=== PATIENT | male | born 2005 | race Caucasian/White ===

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

== ENCOUNTER 2025-05-15 19:50 | Emergency (ER) | payer BC, SELFPAY ==
[2025-05-15] VITALS (11 sets, daily range): BP systolic 125–141; BP diastolic 69–84; PULSE 56–64; RESP 12–22; TEMP 36.6; O2SAT 98–99; BMI 29.5
--- NOTE | 2025-05-15 19:56 | ED.VIS.CHEST ---
HPI History of Present Illness Chief Complaint: Chest Pain Informant: patient Onset/Context/Timing Onset: Weeks (2) Activity at onset: gradual Timing: Intermittent Quality: Positive for Aching and Stabbing Location: Substernal, Right Parasternal and Left Parasternal Worsened By: Nothing Relieved By: Nothing Associated Symptoms: Positive for Cough and Palpitations; Negative for Nausea, Vomiting, Diaphoresis, Dyspnea, Fever, Lightheadedness or Acid Reflux Narrative Narrative: Patient presents with chest pain, jaw pain, neck pain, and dental pain that has been getting worse over the past 2 weeks. Patient states it comes and goes. Patient states it comes on gradually. Patient describes the pain as aching and stabbing. Patient states that the pain is over the substernal and bilateral parasternal areas. Patient states nothing makes it better nothing makes it worse. Patient admits to a cough. Patient also admits to some palpitations. Patient denies any shortness of breath. Patient denies any nausea or vomiting. Patient denies any diaphoresis or fevers. Patient states she had a recent car trip to [place] and back. CVD Risk Factors: Negative for Hypertension, Diabetes, Hypercholesterolemia, Family History 1' </=55 or Smoking PE Risk Factors: Positive for Recent Travel/Surgery; Negative for Recent Immobilization, Prior DVT or PE, Cancer or OCP + Smoking + >/=35 PFSH PFSH Medical History Seasonal allergies Home Medications ?Medication ?Instructions ?Recorded ?Last Taken ?Type cetirizine 10 mg tablet (Zyrtec) 10 mg PO DAILY 02/15/22 Unknown History Allergy/AdvReac Type Severity Reaction Status Date / Time cefdinir (From Omnicef) Allergy PT UNSURE Verified 05/15/25 19:51 OF REACTION Penicillins Allergy PT UNSURE Verified 05/15/25 19:51 OF REACTION Surgical History no surgical history no surgical history Social History Smoking Status: Never smoker ROS ROS ED Constitutional Constitutional ED: Denies chills or fever(s) Eyes Eyes: Denies blurry vision or change in vision ENT ENT ED: Reports rhinorrhea; Denies sore throat Cardiovascular Cardiovascular: Denies chest pain or palpitations Respiratory/Chest Respiratory/Chest: Denies cough or dyspnea Gastrointestinal Gastrointestinal: Denies nausea or vomiting Genitourinary Genitourinary ED: Denies dysuria or hematuria Musculoskeletal Musculoskeletal: Reports neck pain; Denies back pain Integumentary Denies abscess or rash Neurologic Neurologic: Reports headache(s); Denies weakness Allergic/Immunologic Allergic/Immunologic ED: Denies mouth swelling or urticaria EXAM Physical Exam Const Vital Signs: 05/15/25 19:50 05/15/25 20:04 05/15/25 20:17 Temperature 98 F Temperature Source Oral Pulse Rate 62 Respiratory Rate 18 Respiratory Effort Normal Blood Pressure 141/75 H Blood Pressure Mean 97 Pulse Ox 99 98 Oxygen Delivery Method Room Air Room Air 05/15/25 20:35 05/15/25 20:45 05/15/25 20:45 Temperature Temperature Source Pulse Rate 58 L 58 L Respiratory Rate 21 H 22 H Respiratory Effort Blood Pressure 137/75 H Blood Pressure Mean 92 Pulse Ox Oxygen Delivery Method 05/15/25 21:00 05/15/25 21:15 05/15/25 21:18 Temperature Temperature Source Pulse Rate 63 56 L Respiratory Rate 19 H 12 Respiratory Effort Blood Pressure 127/72 H 132/84 H 132/84 H Blood Pressure Mean 88 95 100 Pulse Ox Oxygen Delivery Method 05/15/25 21:30 05/15/25 21:45 05/15/25 22:00 Temperature Temperature Source Pulse Rate 62 60 64 Respiratory Rate 22 H 17 21 H Respiratory Effort Blood Pressure 125/76 H 128/69 H 132/80 H Blood Pressure Mean 90 86 95 Pulse Ox Oxygen Delivery Method Positive well nourished and well developed General Appearance ED: well developed and NAD HEENT Reports moist mucous membranes normocephalic and atraumatic Neck supple and no JVD Resp normal respiratory effort and clear to auscultation bilaterally Cardio regular rate and regular rhythm GI soft to palpation, non-tender and non-distended Extremity normal to inspection General Extremety ED: Negative for edema or pulses abnormal General Extremity: Negative for edema or pulses abnormal Neuro oriented x3, CN's II-XII intact bilaterally and no sensory deficits noted Sensorium / Orientation: awake and alert Motor Exam: strength 5/5 throughout Psych mental status grossly normal MDM MDM MDM Narrative Medical decision making narrative: Differential diagnosis includes cardiac dysrhythmia, cardiac ischemia, pneumonia, bronchitis, pulmonary embolism, electrolyte abnormality, gastroesophageal reflux disease, and anxiety. EKG will be obtained to assess for cardiac dysrhythmia and cardiac ischemia. Basic metabolic profile will be obtained to assess for electrolyte abnormality and renal function. CBC will be obtained to assess for leukocytosis and anemia. High-sensitivity troponin will be obtained to assess for cardiac ischemia. D-dimer will be obtained to assess for pulmonary embolism. History & Record Review Additional record(s) reviewed:: No prior records Lab Data Attestation: I reviewed the patient's lab results. Lab results narrative: CBC was reviewed and was within normal limits. Basic metabolic profile was reviewed and was within normal limits. High-sensitivity troponin was reviewed and was normal at 7. D-dimer was reviewed and was less than 0.27. Labs: Laboratory Results - last 24 hr 05/15/25 20:15 WBC 6.5 RBC 5.48 Hgb 15.7 Hct 44.3 MCV 80.8 MCH 28.6 MCHC 35.4 RDW Std Deviation 36.3 RDW Coeff of Loco 12.4 Plt Count 216 MPV 11.4 Immature Gran % (Auto) 0.500 Neut % (Auto) 54.2 Lymph % (Auto) 32.4 [place] % (Auto) 6.6 Eos % (Auto) 5.7 H Baso % (Auto) 0.6 Absolute Neuts (auto) 3.6 Absolute Lymphs (auto) 2.12 Nucleated RBC % 0 D-Dimer Quant (PE/DVT) < 0.27 L Sodium 140 Potassium 3.8 Chloride 103 Carbon Dioxide 25.0 Anion Gap 12 BUN 13 Creatinine 0.94 Estim Creat Clear Calc 154.44 Est GFR (MDRD) Non-Af 118 BUN/Creatinine Ratio 14.1 Glucose 86 Calcium 9.8 Troponin T High Sens 7 Radiography Chest X-Ray - ED: 2 View, Read by ED Physician, Read by Radiologist and No Acute Disease Diagnostic Testing: Clinical Impression(s) from Imaging Studies Chest X-Ray 05/15/25 20:04 IMPRESSION: As above. Reading Location: [id number] and lateral chest x-ray was obtained. There are 2 views. On my independent interpretation, lung ontiveros are clear. There is normal cardiac silhouette. Bony thorax is normal. There is no acute process noted. Radiologist also interpreted the x-ray and agrees. EKG Initial EKG: Attestation: I personally reviewed and interpreted this EKG as follows: Interpretation: No Acute Injury Pattern and Sinus Bradycardia (59) Comments: EKG was obtained. On my independent interpretation, it showed a sinus bradycardia with a rate of 59. TN interval, QRS interval, and QTc intervals were all normal. [place] was normal. There are no acute ST or T wave changes. Prior EKG tracings: not available for review Prior: No Prior Treatment and Re-Evaluation :: Patient was given aspirin. Patient was advised of his findings. Patient was instructed to follow-up with his primary care physician in 7 to 10 days. Patient was instructed to return if worse in any way. Patient understood and was agreeable with the plan. All questions were answered. Discharge Plan Triage Chief Complaint: Chest Pain ED Provider: Niels Tesfaye Dx/Rx/DC Orders Clinical Impression: Chest pain, Elevated blood pressure reading without diagnosis of hypertension Instructions: ED Chest Pain, Uncertain Cause Prescriptions: No Action cetirizine [Zyrtec] 10 mg Tablet 10 mg PO DAILY Primary Care Provider: Martina Lucas,Out of Referrals: Martina Lucas,Out of [Primary Care Provider, Medical] - 5-7 Days Print Language: Yoruba Disposition Disposition: Home, Self Care
--- NOTE | 2025-05-15 20:04 | RAD_ITS ---
PROCEDURE: CHEST PA AND LATERAL 05/15/2025 REASON FOR EXAM: CHEST PAIN TECHNIQUE: Procedure Code: RADCXR Modality: DX Procedure: CHEST PA AND LATERAL FINDINGS: The lungs are clear. The cardiomediastinal silhouette appears unremarkable. No acute osseous abnormality. RAD/Chest PA and Lateral IMPRESSION: As above. Reading Location: [id number]
--- NOTE | 2025-05-15 20:04 | EKG12_ITS ---
Test Reason : CP Blood Pressure : */* mmHG Vent. Rate : 59 BPM Atrial Rate : 59 BPM P-R Int : 144 ms QRS Dur : 104 ms QT Int : 410 ms P-R-T Axes : 46 71 38 degrees QTcB Int : 405 ms Sinus bradycardia Otherwise normal ECG Confirmed by Wesley Guzman ([id number]), associate editor URI KIRBY ([id number]) on 05/16/2025 8:34:01 AM Referred By: GRANT Confirmed By: Wesley Guzman
--- OUTSIDE RECORDS SUMMARY | 2025-05-15 20:21 | XMS RPT_ITS | CCD ---
Author Organization [facility] [employer] [facility] Care Team Providers Care Physicist [employer] Name Role Phone Care Physician, No Primary Primary Care Unava ilable Provider, Ed Physician Attending [facility] Care Physician, No Primary Primary Care Unava ilable Niels Tesfaye Attending Unavailable Care Physician, No Primary Primary Care Unava ilable Provider, Ed [facility] Attending Unavailable Care Physician, No Primary Primary Care Unava ilable Allergies Allergy Classification Reported Allergen(s) Allergy Type Date of Onset Reaction(s) Facility (3 sources) cefdinir Drug Allergy 2 PT UNSURE OF REACTION [facility] Work Phone: (3 sources) Penicillins Allergy to substance 2 PT UNSURE OF REACTION [facility] Work Phone: (1 source) cefdinir Drug Allergy 2 [facility] Repository (1 source) Penicillins Drug allergy (disorder) 2 [facility] Repository Medications Current Medications Medication Drug Class(es) Dates Sig (Normalized) Sig (Original) cetirizine hydrochloride 10 mg oral tablet (3 sources) Histamine-1 Receptor Antagonist Start: 02-15-2022 take 1 tablet by mouth once daily Cetirizine (Zyrtec) 10 mg Tablet Active 10 MG PO DAILY February 15, 2022 12:00am Problems Problem Classification Problem Date Documented Da te Episodic/Chronic E Codes: Natural/environment (3 sources) Mammal bite wound; Translations: [Bitten by other mammals, initial encounter] Episodic Immunizations and screening for infectious disease (5 sources) Exposure to Rabies virus; Translations: [Contact with and (suspected) exposure to rabies] Onset: 02-21-2022 Episodic Results Test Name Value Interpretation Reference Range Facil ity Emergency Department Summary on 02-15-2022 Emergency Department Summary [facility] Medical Records Department [address] [place] [address] Emergency Department Summary 02/15/22 MR#: [id number] Acct: [id number] Name: ROSALIA JEAN BAPTISTE Rep #: [id number] : 2005 16 From: Erin Eubanks MD PCP: Care Physician,No Primary Status:DEP ER Location: ED HPI History of Present Illness Chief Complaint: Bite Detail of Chief Complaint: Possible bat bite Informant: patient Narrative Narrative: Patient presents from the [facility] secondary to possible bat bite. He noted 2 small red lesions on his lower leg today and is concerned he may been bitten by a bat. [facility] Medical History Seasonal allergies Home Medications cetirizine 10 mg tablet (Zyrtec) 10 mg PO DAILY 02/15/22 [History Last Taken Unknown] Allergy/AdvReac Type Severity Reaction Status Date / Time cefdinir [From Omnicef] Allergy PT UNSURE Verified 02/15/22 15:30 OF REACTION Penicillins Allergy PT UNSURE Verified 02/15/22 15:30 OF REACTION Social History Smoking Status: Never smoker ROS ROS ED Constitutional Constitutional ED: Denies chills or fever(s) Eyes Eyes: Denies change in vision or discharge from eye(s) ENT ENT ED: Denies discharge from eye(s), rhinorrhea or sore throat Cardiovascular Cardiovascular: Denies chest pain or palpitations Respiratory/Chest Respiratory/Chest: Denies cough or dyspnea Gastrointestinal Gastrointestinal: Denies abdominal pain, diarrhea, nausea or vomiting Genitourinary Genitourinary ED: Denies difficulty urinating or dysuria Musculoskeletal Musculoskeletal: Denies back pain or extremity pain Integumentary Reports other Details: 2 small erythematous lesions on the left lower leg. Neurologic Neurologic: Denies headache(s) or weakness Psychiatric Psychiatric: Denies anxiety or depression Endocrine Endocrinology: Denies polydipsia or polyuria Allergic/Immunologic Allergic/Immunologic ED: Denies lip swelling or urticaria EXAM Physical Exam Const Vital Signs: 02/15/22 15:28 02/15/22 15:40 02/15/22 17:15 Temperature 98.7 F Temperature Source Temporal Pulse Rate 80 69 Respiratory Rate 16 16 Respiratory Effort Normal Non-Labored Respiratory Pattern Normal Blood Pressure 154/76 H 140/69 H Blood Pressure Mean 102 Pulse Ox 98 98 Oxygen Delivery Method Room Air Positive well nourished and well developed General Appearance ED: well developed HEENT Reports normocephalic and head/scalp atraumatic Eyes PERRL and EOMs intact bilaterally Neck supple Chest Wall inspection of chest normal and palpation of chest normal Resp normal respiratory effort and clear to auscultation bilaterally Cardio regular rate and regular rhythm GI normal to inspection, nondistended, normoactive bowel sounds Palpation: soft Extremity Extremity Narrative: 2 small erythematous superficial lesions to the left hathaway. No surrounding tenderness. Neuro oriented x3 and no sensory deficits noted Sensorium / Orientation: alert Motor Exam: strength 5/5 throughout Psych mental status grossly normal MDM MDM MDM Narrative Medical decision making narrative: Rabies series will be started and patient will return on days 3, 7, 14 for repeat dose. Discharge Plan Triage Chief Complaint: Bite ED Provider: Erin Eubanks Dx/Rx/DC Orders Clinical Impression: Bat bite wound, Rabies exposure Instructions: Understanding Rabies Prescriptions: No Action cetirizine [Zyrtec] 10 mg Tablet 10 mg PO DAILY Primary Care Provider: Care Physician,No Primary Referrals: [facility] Doctor,Out of [Non-Staff] - Disposition Disposition: Home, Self Care Discharge Date/Time: 02/15/22 17:15 What to do if you have Problems For any increased pain, shortness of breath, bleeding, nausea or vomiting, chest pain, or any unexpected problems, contact your Primary Care Provider. Call [facility] ([phone]) or report to the closest Emergency Room. Call 911 if necessary. 02/16/22 0004 Cosigner Signature (if applicable): CC: No Primary Care Physician Signed Normal [facility] Vital Signs Date Time Vital Sign Value Performing Clinician Randee gregorio 03-01-2022 14:12040 Body height 185.42 cm [facility] Work Phone: 03-01-2022 14:12040 Body mass index (BMI) [Percentile] Per age and sex 94 % [facility] Work Phone: 03-01-2022 14:12-0400 Body mass index (BMI) [Ratio] 29 kg/m2 [facility] Work Phone: 03-01-2022 14:12-0400 Body temperature 96.8 [degF] [facility] Work Phone: 03-01-2022 14:12-0400 Body weight 99.79 kg [facility] Work Phone: 03-01-2022 14:12-0400 Diastolic blood pressure 89 mm[Hg] [facility] Work Phone: 03-01-2022 14:12-0400 Heart rate 66 /min [facility] Work Phone: 03-01-2022 14:12-0400 Respiratory rate 16 /min [facility] Work Phone: 03-01-2022 14:12-0400 SaO2% (BldA) [Mass fraction] 97 % [facility] Work Phone: 03-01-2022 14:12-0400 Systolic blood pressure 136 mm[Hg] [facility] Work Phone: 02-22-2022 13:14-0400 Body height 185.42 cm [facility] Work Phone: 02-22-2022 13:14-0400 Body mass index (BMI) [Percentile] Per age and sex 94.4 % [facility] Work Phone: 02-22-2022 13:14-0400 Body mass index (BMI) [Ratio] 29.2 kg/m2 [facility] Work Phone: 02-22-2022 13:14-0400 Body temperature 97.1 [degF] [facility] Work Phone: 02-22-2022 13:14-0400 Body weight 100.7 kg [facility] Work Phone: 02-22-2022 13:14-0400 Diastolic blood pressure 71 mm[Hg] [facility] Work Phone: 02-22-2022 13:14-0400 Heart rate 61 /min [facility] Work Phone: 02-22-2022 13:14-0400 Respiratory rate 18 /min [facility] Work Phone: 02-22-2022 13:14-0400 SaO2% (BldA) [Mass fraction] 99 % [facility] Work Phone: 02-22-2022 13:14-0400 Systolic blood pressure 146 mm[Hg] [facility] Work Phone: 02-18-2022 13:16-0400 Body mass index (BMI) [Percentile] Per age and sex 94.1 % [facility] Work Phone: 02-18-2022 13:16-0400 Body mass index (BMI) [Ratio] 29 kg/m2 [facility] Work Phone: 02-18-2022 13:16-0400 Body temperature 97.2 [degF] [facility] Work Phone: 02-18-2022 13:16-0400 Body weight 99.79 kg [facility] Work Phone: 02-18-2022 13:16-0400 Diastolic blood pressure 63 mm[Hg] [facility] Work Phone: 02-18-2022 13:16-0400 Heart rate 68 /min [facility] Work Phone: 02-18-2022 13:16-0400 Respiratory rate 16 /min [facility] Work Phone: 02-18-2022 13:16-0400 SaO2% (BldA) [Mass fraction] 98 % [facility] Work Phone: 02-18-2022 13:16-0400 Systolic blood pressure 134 mm[Hg] [facility] Work Phone: 02-15-2022 17:15-0400 Diastolic blood pressure 69 mm[Hg] [facility] Work Phone: 02-15-2022 17:15-0400 Heart rate 69 /min [facility] Work Phone: 02-15-2022 17:15-0400 Respiratory rate 16 /min [facility] Work Phone: 02-15-2022 17:15-0400 SaO2% (BldA) [Mass fraction] 98 % [facility] Work Phone: 02-15-2022 17:15-0400 Systolic blood pressure 140 mm[Hg] [facility] Work Phone: 02-15-2022 15:28-0400 Body height 185.42 cm [facility] Work Phone: 02-15-2022 15:28-0400 Body mass index (BMI) [Percentile] Per age and sex 94.1 % [facility] Work Phone: 02-15-2022 15:28-0400 Body mass index (BMI) [Ratio] 29 kg/m2 [facility] Work Phone: 02-15-2022 15:28-0400 Body temperature 98.7 [degF] [facility] Work Phone: 02-15-2022 15:28-0400 Body weight 99.79 kg [facility] Work Phone: Encounters Encounter Date Encounter Type Care Provider Facility Start: 03-01-2022 End: 03-01-2022 ambulatory No Primary Care Physician Facility:[facility] Start: 03-01-2022 End: 03-01-2022 ambulatory [facility] Work Phone: Start: 03-01-2022 End: 03-01-2022 Patient encounter procedure [facility] Start: 02-22-2022 End: 02-22-2022 ambulatory No Primary Care Physician Facility:[facility] Start: 02-22-2022 End: 02-22-2022 Emergency department patient visit [facility] Start: 02-22-2022 End: 02-22-2022 Patient encounter procedure [facility] Start: 02-18-2022 End: 02-18-2022 ambulatory No Primary Care Physician Facility:[facility] Start: 02-18-2022 End: 02-18-2022 Patient encounter procedure [facility] Start: 02-15-2022 End: 02-15-2022 Emergency department patient visit Erin Eubanks Facility:[facility] Start: 02-15-2022 End: 02-15-2022 Emergency department patient visit [facility] Plan of Treatment Date Care Activity Detail Author Patient Education Understanding Rabies [facility] Work Phone: Patient referral [facility] Work Phone: Immunizations Immunization Date Immunization Notes Care Provider Fa cility 03-01-2022 rabies vaccine, for intramuscular injection [facility] Work Phone: 02-22-2022 rabies vaccine, for intramuscular injection [facility] Work Phone: 02-18-2022 rabies vaccine, for intramuscular injection [facility] Work Phone: 02-15-2022 rabies immune globulin [facility] Work Phone: 02-15-2022 rabies vaccine, for intramuscular injection [facility] Work Phone: Payers Date Payer Category Payer Self-pay 2022 Unknown [id number] Unknown [id number] Unknown [id number] Unknown [id number] Unknown [id number] Social History Date Type Detail Facility Start: 02-15-2022 Tobacco smoking stat us NVIS Unknown if ever smoked [facility] Work Phone: Start: 2005 Sex Assigned At Male [facility] Work Phone: Mental Status Date Assessment Result Facility 02-15-2022 Cognitive function Level Of Cons ciousness Awake;Alert;Appropriate;Follow s Commands [facility] Work Phone: Evaluation note Note Date & Type Note Facility Evaluation note No assessment information availa ble [facility] Work Phone: Chief Complaint and Reason for Visit Chief Complaint BAT BITE Chief Complaint BAT BITE meds only MEDS ONLY Chief Complaint BAT BITE meds only MEDS ONLY med only Advance Directives Advance Directive Response Recorded Date/ Time Living Will No February 15 3:39pm Power of Dividing Machine Operator Helper No February 15, 2022 3:39pm Summary Purpose Family History No Family History Records Found Additional Source Comments Goals (unrecognized section and content) Goals may be documented in a n alternate sectionGoals may be documented in an alternate sectionGoals may be documented in an alternate section (unrecognized sect ion and content) No Status Records Found INFORMATION SOURCE (unrecogn ized section and content) DATE CREATED AUTHOR 03/13/2022 [facility] FOR RECORDS PERTAINING TO PATIENTS WHO ARE OR HAVE BEEN ENROLLED IN A CHEMICAL DEPENDENCY/SUBSTANCEABUSE PROGRAM, SOME INFORMATION MAY BE OMITTED. This clinical summary was aggregated from multiple sources. Caution should be exercised in using it in the provision of clinical care. This summary normalizes information from multiple sources, and as a consequence, information in this document may materially change the coding, format and clinical context of patient data. In addition, data may be omitted in some cases. CLINICAL DECISIONS SHOULD BE BASED ON THE PRIMARY CLINICAL RECORDS. [employer] provides no warranty or guarantee of the accuracy or completeness of information in this document.
[2025-05-15 20:22] LABS: Hematocrit 44.3 % (40-54); Hemoglobin 15.7 g/dL (13.0-16.5); Immature Granulocytes Count 0.030 X10^3/uL (0.0-0.0); Mean Corp Hgb Conc 35.4 g/dL (32-36); Mean Corpuscular Volume 80.8 fL (80-94); Mean Platelet Vol. 11.4 fl (6.2-12.0); NRBC Flagged by Analyzer 0 % (0-5); Platelet Count 216 K/mm3 (150-450); RBC Distribution Width CV 12.4 % (11.6-14.6); RBC Distribution Width SD 36.3 fl (35.1-43.9); Red Blood Count 5.48 M/mm3 (4.6-6.2); White Blood Count 6.5 K/mm3 (4.4-11.0)
[2025-05-15 20:53] LABS: Anion Gap 12 (5-15); BUN 13 mg/dL (4-19); BUN/Creat Ratio 14.1 RATIO (10-20); Calcium,Total 9.8 mg/dL (7.6-11.0); Carbon Dioxide 25.0 mmol/L (21.0-32.0); Chloride 103 mmol/L (98-108); Estimated Creatinine Clearance 154.44 ml/min (50-250); Glucose 86 mg/dL (70-99); Potassium 3.8 mmol/L (3.3-5.1); Troponin T High Sensitivity 7 ng/L (<=22)
--- NOTE | 2025-05-15 21:24 | CM.ED ---
Social Work Date of referral: 05/15/25 Reason for referral: Out of town PCP, possible support as patient is a local student. Referred by: Social Work identification Patient provided consent to social work visit and denied the need for any support. Patient's girlfriend was present and patient denied any other needs/resources at this time. Erin Arredondo, HIP HOP DANCER, SP[employer]ISH T[employer]OR
[2025-05-15 22:01] LABS: D-Dimer Quantitative (DVT/PE) < 0.27 FEU/ug/m (0.27-0.49)
== END 2025-05-15 22:15 | disposition home or self-care (01) ==
PROVIDERS: Emergency Provider Emergency Medicine; Visit Provider Emergency Medicine
DX: R07.9 Chest pain, unspecified (principal); R00.2 Palpitations; R03.0 Elevated blood-pressure reading, without diagnosis of hypertension; R68.84 Jaw pain
CPT/HCPCS: 71046; 80048; 84484; 85025; 85379; 93005; 99284; A4216